=== PATIENT | female | born 1985 | race Caucasian/White ===

== ENCOUNTER 2018-02-09 23:35 | Emergency (ER) | payer OTHER ==
[~2018-02-09] VITALS: Ht 170.2 cm; Wt 63.6 kg
[2018-02-10] MEDS ORDERED: SODIUM CHLORIDE 0.9% 1,000 ML IV ONE (00:08)
[2018-02-10] MEDS ORDERED: LORAZEPAM 2MG/ML CPJ IV ONE (00:15)
[2018-02-10] MEDS ORDERED: ONDANSETRON HCL 4MG/2ML INJ IV ONE (01:00)
[2018-02-10 01:19] LABS: CLARITY URINE CLOUDY (CLEAR); COLOR URINE YELLOW (YELLOW); KETONES URINE NEGATIVE (NEGATIVE); LEUKOCYTE ESTERASE URINE 3+ (NEGATIVE); NITRITE URINE NEGATIVE (NEGATIVE); OCCULT BLOOD URINE NEGATIVE (NEGATIVE); PROTEIN URINE NEGATIVE (NEGATIVE); SPECIFIC GRAVITY URINE 1.007 (1.005-1.030); UROBILINOGEN URINE 0.2 E.U./dL (0.2-1.0)
[2018-02-10 01:22] LABS: BASOPHILS % 0.7 % (0.0-2.0); EOSINOPHILS % 1.3 % (0.0-5.0); HEMATOCRIT. 37.1 % (36.0-48.0); HEMOGLOBIN. 12.7 g/dL (12.0-16.0); LYMPHOCYTES % 25.3 % (20.0-50.0); MEAN CORPUSCULAR HEMOGLOBIN 30.6 pg (28.0-32.0); MEAN CORPUSCULAR VOLUME 89.4 fL (81.0-99.0); MEAN PLATELET VOLUME 7.6 fl (7.4-10.4); NEUTROPHILS % 65.7 % (40.0-76.0); PLATELET 325 x1000/uL (130-400); RED BLOOD CELL COUNT 4.16 mill/uL (4.2-5.4); RED CELL DISTRIBUTION WIDTH 14.5 % (11.6-14.6)
[2018-02-10 01:26] LABS: CHLORIDE 105 mEq/L (98-107)
[2018-02-10 01:31] LABS: *BARBITURATES SCREEN URINE NEGATIVE (NEGATIVE)
[2018-02-10 01:31] LABS: ETHANOL BLOOD 54 mg/dL
[2018-02-10 01:32] LABS: *AMPHETAMINES SCREEN URINE NEGATIVE (NEGATIVE); *BENZODIAZEPINES SCREEN URINE NEGATIVE (NEGATIVE); *COCAINE SCREEN URINE NEGATIVE (NEGATIVE); METHADONE URINE SCREEN NEGATIVE (NEGATIVE); OPIATES URINE SCREEN NEGATIVE (NEGATIVE); PHENCYCLIDINE URINE SCREEN NEGATIVE (NEGATIVE)
[2018-02-10 01:38] LABS: CANNABINOID URINE SCREEN PRESUMTIVE POSITIVE (NEGATIVE)
[2018-02-10 03:27] VITALS: BP 115/74
== END 2018-02-10 03:29 | disposition home or self-care (01) ==
LOC: ER 23:35
DX: F41.8 Other specified anxiety disorders (principal); T50.901A Poisoning by unspecified drugs, medicaments and biological substances, accidental (unintentional), initial encounter; F12.10 Cannabis abuse, uncomplicated; R11.10 Vomiting, unspecified; Y92.89 Other specified places as the place of occurrence of the external cause; N39.0 Urinary tract infection, site not specified; F17.210 Nicotine dependence, cigarettes, uncomplicated
CPT/HCPCS: 36415; 80053; 80305; 81003; 81025; 85025; 87077; 87086; 87186; 96361; 96374; 96375; 99285; G0482; J2060; J2405; J7030